=== PATIENT | female | born 1985 | race Caucasian/White ===

== ENCOUNTER 2023-06-21 19:35 | Emergency (ER) | payer OTHER ==
[~2023-06-21] VITALS: Ht 185.4 cm; Wt 100.3 kg
[2023-06-21 20:10] VITALS: TEMP 98.2; O2SAT 100
[2023-06-21] MEDS ORDERED: SODIUM CHLORIDE 0.9% 1,000 ML IV SCH (20:30)
[2023-06-21] MEDS ORDERED: EPIN0.3P3 IM (20:33)
[2023-06-21] MEDS: EPINEPHRINE 1:1000 1 MG/ML AMP SUBCUT ONE (20:39)
[2023-06-21] MEDS: METHYLPREDNISOLONE SOD SUCC 125MG/2ML (ACT-O-VIAL) IV ONE (21:31)
[2023-06-21] MEDS: DIPHENHYDRAMINE 50MG/ML VIAL IV ONE (21:31)
[2023-06-21] MEDS: FAMOTIDINE 20MG/2ML VIAL IV ONE (21:36)
[2023-06-22] MEDS ORDERED: PRED10TA MT (03:24)
[2023-06-22] MEDS ORDERED: FAMO-135 MT (03:24)
[2023-06-22] MEDS ORDERED: DIPH25TA62 MT (03:24)
[2023-06-22 03:39] VITALS: BP 117/62; PULSE 76; RESP 14
== END 2023-06-22 03:51 | disposition home or self-care (01) ==
LOC: ER 19:35
DX: T78.2XXA Anaphylactic shock, unspecified, initial encounter (principal)
CPT/HCPCS: 99284; 96374; 96375; 96372; 81025; J1200; J3490 ×2; J2930